=== PATIENT | female | born 1995 | race Caucasian/White ===

== ENCOUNTER 2020-06-28 13:46 | Outpatient (CLI) | payer OTHER, SELFPAY ==
--- NOTE | ~2020-06-28 | US_ITS ---
EXAMINATION: US pelvic complete w TV DATE: 06/28/2020 14:24 INDICATION: Dysfunctional uterine bleeding TECHNIQUE: Multiple transabdominal and endovaginal sonographic images of the pelvis were obtained. COMPARISON: None. FINDINGS: The uterus measures 7.8 x 3.6 x 4.6 cm. The endometrial complex measures 6 mm. The IUD appe ars to be in expected position. The right ovary measures 3.4 x 1.9 x 2.4 cm. The left ovary measures 2.4 x 1.5 x 1.8 cm. There is normal vascular flow in the ovaries. There is no free fluid in the pelvi s. IMPRESSION: 1. No sonographic correlate for the patient's symptoms. Reviewed, dictated and finalized at location B.
== END 2020-06-28 13:47 | disposition home or self-care (01) ==
PROVIDERS: PCP Family Medicine; Visit Provider Nurse Practitioner Family
DX: N93.8 Other specified abnormal uterine and vaginal bleeding (principal)
CPT/HCPCS: 76830; 76856

== ENCOUNTER 2020-10-22 13:30 | Outpatient (RCR) | payer OTHER, SELFPAY ==
--- NOTE | 2020-10-23 15:59 | PTOPEVAL ---
Thank you for referring Tori Mortensen to [facility] [place]Note 2[place]? The patient is scheduled to be seen for therapy? ____x/week for ___ weeks. Please review, sign, date and return this plan of care LEONOR. I agree with and certify that the following plan of care is medically necessary. Referring Physician Date Admitting Provider: Attending Provider: Sami Guy M.D. Referring Provider: *PT Outpatient Evaluation Start: 10/22/20 13:47 Freq: Status: Active Protocol: Document 10/22/20 13:45 [facility] (Rec: 10/22/20 14:54 [facility] [email or web address]) Therapy Assessment Status Assessment Status Assessment Status Evaluation Evaluation Information Problem Diagnosis sciatica L and R sides Onset 10/16/20 Additional Evaluation Detail oswestry = 34% Subjective Information patient reports she has been Query Text:As Reported By Patient/ having L and now R LE pain/ Family symptoms since giveing and having and epidural back in April of this year. she reports she has had a history of sciatic nerve pain in the past for a long time, but reports it has been worse since childbirth. she reports labor was 36 hours. Prior Level of Function Comments Additional Prior Level of Function prior to childbirth she was Comments having an annoying ache that was relieved with piriformis stretching. she reports now her symptoms are more numbness /tingling in the LE's. she reports increased symptoms later in the day at work and when laying down at night. she reports increased symptoms with lifting and carrying car seat. Pain Assessment Timing of Pain Assessment Timing of Pain Assessment Assessment Pain Scale Pain Scale Used Numeric (1 - 10) Self Report Pain Assessment Lower Leg(s) Reported Pain Level 4 Pain Description Aching,Numbness,Tingling Pain Radiation Left Leg,Right Leg Radicular Pain Location bilateral LE's down to feet. Greatest Pain Intensity 7 Pain Score Pain Score 4: Self Report Interventions Used Interventions Used By Clinicians Activity or ADL's,Education, Electrical Stimulation, Exercise,Heat,Manual Therapy
--- NOTE | 2020-11-22 16:54 | PTOPEVAL ---
Thank you for referring Tori Mortensen to [facility].? The patient is scheduled to be seen for therapy? ____x/week for ___ weeks. Please review, sign, date and return this plan of care LEONOR. I agree with and certify that the following plan of care is medically necessary. Referring Physician Date Admitting Provider: Attending Provider: Sami Guy M.D. Referring Provider: TEODORO Outpatient Evaluation Start: 10/22/20 13:47 Freq: Status: Active Protocol: Document 11/22/20 16:15 [facility] (Rec: 11/22/20 16:53 [facility] [email or web address]) Therapy Assessment Status Assessment Status Assessment Status Discharge Evaluation Information Problem Diagnosis sciatica L and R sides Onset 10/16/20 Additional Evaluation Detail oswestry = 0% functional deficits Subjective Information patient reports he feels Query Text:As Reported By Patient/ great this date. she reports Family she has no mor pain in the back or LE's. patient reports she is back to all prior level recreational, work, and home activities. Pain Assessment Timing of Pain Assessment Timing of Pain Assessment Assessment Self Report Self Report Pain Level 0 Pain Score Pain Score 0: Self Report Cervical and Lumbar ROM Lumbar ROM Lumbar Flexion Active Floor Query Text:Hands to: Lumbar Extension (0-40) 40 Query Text:Active in Degrees Lumbar Lateral Flexion Right (0-40) 40 Query Text:Active in Degrees Lumbar Lateral Flexion Left (0-40) 40 Query Text:Active in Degrees Cervical and Lumbar Muscle Testing Lumbar Strength Upper Abdominal Strength 4 Good Lower Abdominal Strength 4 Good Lower Extremity Muscle Strength Testing Hip Strength Bilateral Hip Flexion Strength 5 Normal Hip Extension Strength 5 Normal Hip Abduction Strength 5 Normal Knee Strength Bilateral Knee Flexion Strength 5 Normal Knee Extension Strength 5 Normal Ankle Strength Bilateral Ankle Dorsiflexion Strength 5 Normal Ankle Plantarflexion Strength 5 Normal Muscle Length Testing Muscle Length Testing Piriformis w/Hip Flexion >90 Degrees (R) WFL,(L) WFL Left Hamstring Length 0 Query Text:(90 - 90 Position) Right Hamstring Length 0 Query Text:(90 - 90 Position) General Exercise General Exercises Exercise Description -rec bike 10 minutes Query Text:Record Sets, Reps, -re-evaluation 5 minutes Resistance, and Position PT Clinical Summary Clinical Summary Protocol: PTEVCODE PT Clinical Summary mrs. mortensen
== END 2020-11-22 09:34 | disposition home or self-care (01) ==
LOC: CHSPT 13:30
PROVIDERS: PCP Family Medicine; Visit Provider Family Medicine
DX: M54.31 Sciatica, right side (principal)
CPT/HCPCS: 97014; 97110; 97140; 97161; G0283

== ENCOUNTER 2022-03-31 10:12 | Outpatient (CLI) | payer OTHER, SELFPAY ==
--- NOTE | ~2022-03-31 | XR_ITS ---
EXAMINATION: XR foot RT min 3V DATE: 03/31/2022 10:33 INDICATION: Foot pain injury with pain at the first and second metatarsals TECHNIQUE: Dorsoplantar, two oblique and lateral views of the right foot were obtained. COMPARISON: None. FINDINGS: Alignment is normal. No fracture. Joint spaces are normal. Soft tissues are unremarkable. IMPRESSION: 1. Negative right foot radiographs. Reviewed, dictated and finalized at location A. RIAL CARRIER
== END 2022-03-31 10:13 | disposition home or self-care (01) ==
PROVIDERS: PCP Family Medicine; Visit Provider Internal Medicine
DX: S99.921A Unspecified injury of right foot, initial encounter (principal)
CPT/HCPCS: 73630

== ENCOUNTER 2023-03-04 10:26 | Outpatient (CLI) | payer OTHER, SELFPAY ==
--- NOTE | ~2023-03-04 | US_ITS ---
EXAMINATION: US OB <= 14 weeks fetus DATE: 03/04/2023 11:07 INDICATION: First trimester dating TECHNIQUE: Real-time pelvic transabdominal and transvaginal ultrasound was performed. COMPARISON: None. FINDINGS: The uterus measures 10.6 x 8.0 x 6.3 cm. There is an intrauterine gestational sac. A yolk s ac is identified. heart motion is identified measuring 159 beats per minute (bpm) by M-mode Dop pler. The crown rump length measures 2.1 cm, which correlates with an estimated gestational age of 8 weeks and 5 day(s) (+/-) 4 day(s). The right ovary is not visualized however no right adnexal abnormality is seen. The left ovary measur es 3.8 x 3.3 x 3.1 cm. There is normal vascular flow in the left ovary. There is no free fluid in the pelvis. IMPRESSION: 1. Live intrauterine with an estimated gestational age of 8 weeks and 5 day(s) (+/-) 4 day( s) and an estimated delivery date of 10/09/2023. Reviewed, dictated and finalized at location L. ERTER SKIMMER IMPRESSION: 1. Live intrauterine with an estimated gestational age of 8 weeks and 5 day(s) (+/-) 4 day(s) and an estimated delivery date of 10/09/2023.
--- NOTE | ~2023-03-04 | US_ITS ---
US breast BI complete DATE: 03/04/2023 11:00 INDICATION: Patient's referring physician reportedly felt a lump in the right breast. TECHNIQUE: Real-time imaging of both complete breasts including all 4 quadrants and subareolar areas COMPARISON: None FINDINGS: There is an approximately 2.6 x 3.3 mm simple cyst in the right breast at 10:00 5 cm from t he nipple. No suspicious mass or shadowing or other significant sonographic abnormality is detected elsewhere in either breast. IMPRESSION: BI-RADS Category 2: Benign Reviewed, dictated and finalized at Location A. Reviewed, dictated and finalized at location A. Y POLISHER IMPRESSION: BI-RADS Category 2: Benign
== END 2023-03-04 10:27 | disposition home or self-care (01) ==
PROVIDERS: PCP Family Medicine; Visit Provider Registered Nurse
DX: O36.80X0 Pregnancy with inconclusive fetal viability, not applicable or unspecified (principal); N63.15 Unspecified lump in the right breast, overlapping quadrants; N63.25 Unspecified lump in the left breast, overlapping quadrants; Z3A.08 8 weeks gestation of pregnancy
CPT/HCPCS: 76641; 76801

== ENCOUNTER 2023-06-30 14:08 | Observation (INO) | payer OTHER, SELFPAY ==
[2023-06-30 14:42] VITALS: BP 123/68; PULSE 79
[2023-06-30 14:45] VITALS: BP 117/73; PULSE 86; BMI 27.1
[2023-06-30 14:59] LABS: Basophils Percent Auto 0.3 % (0.2-1.2); Eosinophils Absolute Auto 0.1 K/mm3 (0-0.3); Eosinophils Percent Auto 0.9 % (0-4.4); Hematocrit 30.5 % (37.0-47.0); Hemoglobin 10.1 g/dL (12.0-15.0); Immature Granulocyte Absolute 0.02 K/mm3 (0.00-0.031); Immature Granulocyte Percent A 0.3 % (0-0.5); Lymphocytes Absolute Auto 1.38 K/mm3 (0.9-3.2); Lymphocytes Percent Auto 21.3 % (18.3-44.2); Mean Corpuscular HGB Conc 33.1 g/dl (32-36); Mean Corpuscular Hemoglobin 30.1 pg (26-34); Mean Platelet Volume 9.4 fl (7.4-10.4); Monocytes Absolute Auto 0.3 K/mm3 (0.1-0.6); Monocytes Percent Auto 4.9 % (2.6-8.5); Neutrophils Absolute Auto 4.7 K/mm3 (1.3-6.7); Neutrophils Percent Auto 72.3 % (45.5-73.1); Platelet Count Result 208 k/mm3 (150-375); Red Blood Count 3.35 M/mm3 (4.2-5.4); White Blood Count 6.5 K/mm3 (4.5-10.0)
[2023-06-30 15:00] VITALS: BP 117/68; PULSE 79
--- NOTE | 2023-06-30 15:05 | OBADM ---
This patient, Tori Garcia, admitted to the OB room OB Post 117 for observation. Patient/family oriented to hospital policies and general routines including ID bracelet, bed and alarms, visiting hours, pain management, procedures, bathroom and other care routines, personal items, smoking policy, room service/diet, and visiting hours. Patient/Family are encouraged to report perceived risks to care and to ask questions if they do not understand what they are told or what they should do.
[2023-06-30 15:08] LABS: Appearance Urine Clear (Clear); Bacteria Urine None Seen /hpf; Bilirubin Urine Negative (Negative); Blood Urine 2+ (Negative); Color Urine Yellow (Yellow); Glucose Urine UA Negative (Negative); Ketones Urine Negative (Negative); Leukocyte Esterase Ur Negative LEU/UL (Negative); Nitrate Urine Negative (Negative); Non Pathogenic Casts 0-2; Protein Urine Negative (Negative); RBC Urine 0-2 /hpf (0-2); Squamous Epithelial Cell Urine None Seen /hpf (Few); Urobilinogen Urine 0.2 mg/dL (<2.0); WBC Urine 0-5 /hpf (0-3)
[2023-06-30 15:09] LABS: Add Urine Microscopic? YES; Specific Grav Ur 1.004 (1.001-1.035)
[2023-06-30 15:11] LABS: Alanine Aminotransferase 12 U/L (6-35); Albumin Level 3.7 g/dL (3.5-5.1); Alkaline Phosphatase 75 U/L (38-126); Anion Gap 6 mmol/L (4-12); Aspartate Amino Transferase 18 U/L (14-36); Bilirubin,Total 0.2 mg/dL (0.2-1.3); Blood Urea Nitrogen 7 mg/dL (7-17); Calcium 8.8 mg/dL (8.4-10.2); Carbon Dioxide 22 mmol/L (22-30); Chloride 107 mmol/L (98-107); Estimated Glomerular Filt Rate > 60; Glucose 100 mg/dL (65-110); Potassium 3.4 mmol/L (3.4-5.0); Sodium 135 mmol/L (137-145); Uric Acid 4.4 mg/dL (2.5-7.5)
[2023-06-30 15:15] VITALS: BP 111/68; PULSE 77
[2023-06-30 15:22] LABS: Creatinine Urine 17.1 mg/dL; Total Protein Urine Random 13 mg/dL; Ur Ttl Prot Creatinine Ratio 0.76 mg/mg (0-0.20)
[2023-06-30 15:30] VITALS: BP 111/74; PULSE 83
--- NOTE | 2023-07-15 17:13 | PM.OBTRLD ---
OB - Triage/Final Diagnosis Visit Information Comments/Additional reasons for admission: I have assessed the risk for this patient, Tori Garcia, and determined that she would benefit from observation care. Evaluation Laboratory results: Laboratory Tests 06/30/23 14:49 WBC 6.5 RBC 3.35 L Hgb 10.1 L Hct 30.5 L MCV 91.0 MCH 30.1 MCHC 33.1 RDW 13.0 Plt Count 208 MPV 9.4 Immature Gran % (Auto) 0.3 Neut % (Auto) 72.3 Lymph % (Auto) 21.3 [place] % (Auto) 4.9 Eos % (Auto) 0.9 Baso % (Auto) 0.3 Lymph # (Auto) 1.38 [place] # (Auto) 0.3 Eos # (Auto) 0.1 Baso # (Auto) 0.0 Abs Immat Gran (auto) 0.02 Absolute Neuts (auto) 4.7 Absolute Nucleated RBC 0.000 Nucleated RBC % 0.0 Sodium 135 L Potassium 3.4 Chloride 107 Carbon Dioxide 22 Anion Gap 6 BUN 7 Creatinine 0.50 L Estim Creat Clear Calc Not Reportable Estimated GFR > 60 Glucose 100 Uric Acid 4.4 Calcium 8.8 Total Bilirubin 0.2 AST 18 ALT 12 Alkaline Phosphatase 75 Total Protein 7.0 Albumin 3.7 Urine Color Yellow Urine Appearance Clear Urine pH 7.0 Ur Specific [place] 1.004 Urine Protein Negative Urine Glucose (UA) Negative Urine Ketones Negative Ur Blood (Man) 2+ H Urine Nitrate Negative Urine Bilirubin Negative Urine Urobilinogen 0.2 Leukocyte Esterase Rfl Negative Urine RBC 0-2 Urine WBC 0-5 Ur Squamous Epith Cells None seen Urine Bacteria None seen Urine Casts 0-2 U Random Total Protein 13 Urine Creatinine 17.1 Protein/Creat Ratio 2 0.76 H Final Diagnosis (1) Headache: Code(s): R51.9 - Headache, unspecified Status: Acute (2) Abdominal cramping affecting : Code(s): O26.899 - Other specified related conditions, unspecified trimester; R10.9 - Unspecified abdominal pain Status: Acute
== END 2023-06-30 15:50 | disposition home or self-care (01) ==
PROVIDERS: Admitting Provider Obstetrics & Gynecology; PCP Family Medicine; Visit Provider Obstetrics & Gynecology
DX: O26.892 Other specified pregnancy related conditions, second trimester (principal); R51.9 Headache, unspecified; R10.9 Unspecified abdominal pain; Z3A.25 25 weeks gestation of pregnancy
CPT/HCPCS: 36415; 80053; 81001; 81050; 82570; 82575; 84156; 84550; 85025; G0378; G0379

== ENCOUNTER 2023-07-01 17:35 | Outpatient (CLI) | payer OTHER, SELFPAY ==
[2023-07-01 17:42] VITALS: BMI 27.1
[2023-07-01 18:59] LABS: Total Volume 24 Hour Urine 2250 ml
[2023-07-01 19:03] LABS: Collection Time Urine 24 HOURS; Total Volume 24 Hour Urine 2250 ml
[2023-07-01 19:04] LABS: Patient Weight 153 Lbs
[2023-07-01 19:16] LABS: Total Protein Urine 24 Hr 247 mg/24hr (28-141); Total Protein Urine Random 11 mg/dL
[2023-07-01 19:18] LABS: Creatinine Clearance Urine 171.9 ml/min (75-125); Creatinine Urine 54.7 mg/dL
== END 2023-07-01 17:36 | disposition home or self-care (01) ==
LOC: ANHOBOP 17:40
PROVIDERS: PCP Family Medicine; Visit Provider Obstetrics & Gynecology
DX: O12.10 Gestational proteinuria, unspecified trimester (principal)
CPT/HCPCS: 81050; 82575; 84156

== ENCOUNTER 2023-07-16 08:25 | Outpatient (CLI) | payer OTHER, SELFPAY ==
[2023-07-16 09:33] LABS: Hematocrit 32.1 % (35.0-49.0); Hemoglobin 10.4 g/dL (12.0-15.0); Mean Corpuscular HGB Conc 32.4 g/dL (32-36); Mean Corpuscular Hemoglobin 29.7 pg (27.0-31.0); Mean Corpuscular Volume 91.7 fL (78.0-102.0); Platelet Count Result 192 K/mm3 (150-420); Red Cell Distribution Width 12.5 % (11.6-14.4); White Blood Count 5.5 K/mm3 (4.8-10.8)
[2023-07-16 09:55] LABS: Glucose 1 Hour PP 50gm Dose 90 mg/dL (70-130)
[2023-07-16 10:08] LABS: HIV 1 P24 AG Negative (Negative); HIV 1/2 AB Negative (Negative)
== END 2023-07-16 08:26 | disposition home or self-care (01) ==
LOC: CHSLAB 08:27
PROVIDERS: PCP Family Medicine; Visit Provider Nurse Practitioner Family
DX: Z34.90 Encounter for supervision of normal pregnancy, unspecified, unspecified trimester (principal)
CPT/HCPCS: 36415; 82947; 85025; 85027; 87806

== ENCOUNTER 2023-09-27 12:39 | Observation (INO) | payer OTHER, SELFPAY ==
--- NOTE | 2023-09-27 12:39 | OBADM ---
This patient, Tori Garcia, admitted to the OB room Labor/Delivery/Recovery 105 for observation. Patient/family oriented to hospital policies and general routines including ID bracelet, bed and alarms, visiting hours, pain management, procedures, bathroom and other care routines, personal items, smoking policy, room service/diet, and visiting hours. Patient/Family are encouraged to report perceived risks to care and to ask questions if they do not understand what they are told or what they should do.
[2023-09-27 13:50] VITALS: BMI 32.2
[2023-09-27 14:15] VITALS: BP 123/73; PULSE 90
--- NOTE | 2023-10-25 09:17 | PM.OBTRLD ---
OB - Triage/Final Diagnosis Visit Information Comments/Additional reasons for admission: I have assessed the risk for this patient, Tori Garcia, and determined that she would benefit from observation care. Final Diagnosis (1) Threatened labor: Code(s): O47.9 - False labor, unspecified Status: Acute
== END 2023-09-27 14:38 | disposition home or self-care (01) ==
PROVIDERS: Admitting Provider Obstetrics & Gynecology; PCP Family Medicine; Visit Provider Obstetrics & Gynecology
DX: O47.1 False labor at or after 37 completed weeks of gestation (principal); Z3A.38 38 weeks gestation of pregnancy
CPT/HCPCS: G0378; G0379

== ENCOUNTER 2023-09-28 12:05 | Outpatient (RCR) | payer OTHER, SELFPAY ==
[2023-09-07 19:01] VITALS: BP 119/73; PULSE 73
[2023-09-21 17:30] VITALS: BP 126/87; PULSE 89
--- NOTE | ~2023-09-28 | US_ITS ---
EXAMINATION: US OB follow up w BPP DATE: 09/21/2023 17:13 INDICATION: Size measuring smaller than dates. Third trimester. TECHNIQUE: Real-time ultrasound of the pelvis was performed. COMPARISON: Ultrasound 03/04/2023 FINDINGS: There is a single living fetus in vertex presentation. The placenta is posterior and fundal. h eart rate is 159 beats per minute (bpm). The amniotic fluid index is 10.8 cm, which is normal. The following biometric data were obtained: Biparietal diameter (BPD): 8.9 cm; head circumference (HC): 35.4 cm; abdominal circumference (AC): 35 .1 cm; femur length (FL): 7.2 cm. These measurements are concordant. Estimated weight is 3500 g +/- 525 g, which correlates with the 81st percentile when 10/08/23 is used as estimated date of delivery. As single measurements, these parameters are each equal to the following estimated gestational ages: BPD: 36 weeks 0 days. HC: 41 weeks 3 days. AC: 39 weeks 0 days. FL: 37 weeks 0 days. estimated gestational age based solely on measurements from this exam is 38 weeks 3 days +/- 2 weeks 5 days. Umbilical artery pulsed Doppler demonstrates a peak systolic to end-diastolic velocity ratio (S/D rat io) of 2.3 (5th percentile = 1.9, 95th percentile = 3.2). Biophysical profile performed by the technologist: breathing (30 sec sustained breathing in 30 minutes): 2 out of 2 movement (3 gross body movements in 30 minutes: 2 out of 2 tone (one episode of srfkmjv-xjuadftfe-trbtirm limb movement): 2 out of 2 Amniotic fluid pocket (2 cm): 2 out of 2 Total score: 8 out of 8 IMPRESSION: 1. Single living fetus in vertex presentation. 2. Estimated weight is 3500 g +/- 525 g, which correlates with the 81st percentile when 4 is used as estimated date of delivery. Note that estimated date of delivery based on the ultrasound from 03/04/2023 would be 10/09/2023. 3. Biophysical profile 8 out of 8. 4. Normal umbilical artery Doppler. Reviewed, dictated and finalized at location E. IMPRESSION: 1. Single living fetus in vertex presentation. 2. Estimated weight is 3500 g +/- 525 g, which correlates with the 81st percentile when 10/08/23 is used as estimated date of delivery. Note that estima lauryn date of delivery based on the ultrasound from 03/04/2023 would be 10/09/2023 . 3. Biophysical profile 8 out of 8. 4. Normal umbilical artery Doppler.
--- NOTE | ~2023-09-28 | US_ITS ---
EXAMINATION: US OB limited w BPP DATE: 09/28/2023 13:33 INDICATION: Low heart rate. Assess amniotic fluid index. TECHNIQUE: Real-time pelvic ultrasound was performed. The interpreting radiologist was not present fo r the study. COMPARISON: None. FINDINGS: There is a single living fetus in vertex presentation. The placenta is posterior fundal. heart rate is 122 beats per minute (bpm). Normal amniotic fluid index of 15.0 cm (5th%-95%: 7.3-23.9 cm at T8 weeks estimated gestational age) Biophysical profile performed by the technologist: breathing (30 sec sustained breathing in 30 minutes): 2 out of 2 movement (3 gross body movements in 30 minutes): 2 out of 2 tone (one episode of xhhnarn-eitgezpxg-vfwifyd limb movement): 2 out of 2 Amniotic fluid pocket (2 cm): 2 out of 2 Total score: 8 out of 8 IMPRESSION: 1. Single living fetus in vertex presentation with heart rate of 122 bpm. 2. Biophysical profile 8 out of 8. 3. Normal amniotic fluid index of 15.0 cm. Reviewed, dictated and finalized at location A.
== END 2023-12-06 23:59 | disposition home or self-care (01) ==
LOC: ANHOBOP 12:05
PROVIDERS: PCP Family Medicine; Visit Provider Obstetrics & Gynecology
DX: O36.8130 Decreased fetal movements, third trimester, not applicable or unspecified (principal); Z3A.35 35 weeks gestation of pregnancy; O36.5930 Maternal care for other known or suspected poor fetal growth, third trimester, not applicable or unspecified; Z3A.37 37 weeks gestation of pregnancy; O36.8330 Maternal care for abnormalities of the fetal heart rate or rhythm, third trimester, not applicable or unspecified; Z3A.38 38 weeks gestation of pregnancy
CPT/HCPCS: 59025; 76815; 76816; 76819

== ENCOUNTER 2023-10-01 06:24 | Inpatient (IN) | payer OTHER, SELFPAY ==
[2023-10-01] VITALS (293 sets, daily range): BP systolic 97–143; BP diastolic 55–116; PULSE 25–145; TEMP 36.3–37.4; O2SAT 69–100; BMI 33.0
[2023-10-01] MEDS: LACTATED RINGERS 1,000 ML 125 ML IV CONT ×4 (07:05→18:21)
--- NOTE | 2023-10-01 07:09 | LDADM ---
This patient, Tori Garcia, was admitted to Labor/Delivery/Recovery 105 on 10/01/23 at 06:24. Plans for labor, pain management and were discussed with patient. Patient/family oriented to hospital policies and general routines including ID bracelet, bed and alarms, visiting hours, pain management, procedures, bathroom and other care routines, personal items, smoking policy, room service/diet and guest tray routines, security routines, and visiting hours. Patient/Family are encouraged to report perceived risks to care and to ask questions if they do not understand what they are told or what they should do. See OBIX for further documentation.
[2023-10-01 07:14] LABS: Basophils Percent Auto 0.3 % (0.2-1.2); Eosinophils Absolute Auto 0.1 K/mm3 (0-0.3); Eosinophils Percent Auto 1.8 % (0-4.4); Hematocrit 31.9 % (37.0-47.0); Hemoglobin 10.5 g/dL (12.0-15.0); Immature Granulocyte Absolute 0.02 K/mm3 (0.00-0.031); Immature Granulocyte Percent A 0.3 % (0-0.5); Lymphocytes Absolute Auto 1.83 K/mm3 (0.9-3.2); Lymphocytes Percent Auto 29.2 % (18.3-44.2); Mean Corpuscular HGB Conc 32.9 g/dl (32-36); Mean Corpuscular Hemoglobin 29.4 pg (26-34); Mean Corpuscular Volume 89.4 fl (80-100); Mean Platelet Volume 10.7 fl (7.4-10.4); Monocytes Absolute Auto 0.4 K/mm3 (0.1-0.6); Monocytes Percent Auto 6.5 % (2.6-8.5); Neutrophils Absolute Auto 3.9 K/mm3 (1.3-6.7); Neutrophils Percent Auto 61.9 % (45.5-73.1); Platelet Count Result 192 k/mm3 (150-375); Red Blood Count 3.57 M/mm3 (4.2-5.4); Red Cell Distribution Width 12.5 % (11.5-14.5); White Blood Count 6.3 K/mm3 (4.5-10.0)
[2023-10-01] MEDS: OXYTOCIN 30 UNITS/NS 500 ML 30 UNITS/500 ML BAG IV CONT (07:20)
[2023-10-01 08:06] LABS: HIV 1/2 Ab P24 Ag Result Negative (Negative)
--- NOTE | 2023-10-01 08:24 | PM.IMHP ---
H&P: HPI History of Present Illness Date/Time: 10/01/23 08:24 Chief Complaint: Induction of labor Narrative: patient is a 27-year-old at 39 weeks admitted for medical induction of labor. course uncomplicated. She has been informed of risks benefits of induction of labor versus spontaneous labor and has opted for induction of labor. Review of Systems Review of Systems: All systems reviewed & are unremarkable except as noted in HPI and below Constitutional: Constitutional: Reports no additional constitutional complaints and Denies headache(s) Eyes: Eyes: Denies spots in vision ENT: Reports system reviewed and no additional complaints, except as documented and Denies headache(s) Cardiovascular: Cardiovascular: Denies chest pain and Denies dyspnea Respiratory: Respiratory: Denies dyspnea Gastrointestinal: Gastrointestinal: Reports no additional gastrointestinal complaints Genitourinary: Genitourinary: Reports amenorrhea Musculoskeletal: Musculoskeletal: Reports no additional musculoskeletal complaints Integumentary/Breasts: Skin/Breast: Denies breast mass and Denies rash Neurologic: Denies headache(s) Psychiatric: Psychiatric: Reports no additional psychiatric complaints [facility] Past Medical History Medical History Frequent headaches Surgical History Surgical History H/O LEEP [place] teeth removed Family History Family History Grandparent Heart disease Bladder cancer Thyroid disorder Grandparent Hypertension Social History Social History Smoking status: Former smoker Tobacco type: cigarettes Alcohol intake: current Alcohol use details: not since Substance use: never Substance use type: does not use Do You Feel Safe in your Home?: Yes Lack of Transportation: No Lack of Food: Never True Current Housing: I Have Housing Concerned About Future Housing: No Difficulty Paying Gas/Electric Bills: No Difficulty Paying for Meds: No Currently Unemployed: No Education: Don't Know Difficulty w/ Childcare or Family Care: No Spiritual care concerns: No Meds Home Medications and Allergies Home Medications Medication Instructions Recorded Confirmed Type amitriptyline 10 mg tablet 10 mg PO DAILY #90 tabs 03/02/23 10/01/23 Rx docosahexaenoic acid 200 mg 1 mg PO DAILY 03/02/23 10/01/23 History capsule ( DHA) ondansetron HCl 4 mg tablet 4 mg PO Q6H PRN nausea and 03/30/23 10/01/23 Rx vomiting #20 tabs sumatriptan succinate 50 mg tablet 10 mg PO PRN 06/30/23 10/01/23 History Allergies Allergy/AdvReac Type Severity Reaction Status Date / Time No Known Allergies Allergy Verified 09/28/23 11:40 Vital Signs Vital Signs - 24 hr 10/01/23 06:42 10/01/23 06:47 10/01/23 06:52 Pulse Rate Blood Pressure Pulse Oximetry 100 100 99 Oxygen Delivery 10/01/23 06:57 10/01/23 07:02 10/01/23 07:07 Pulse Rate Blood Pressure Pulse Oximetry 99 98 97 Oxygen Delivery 10/01/23 07:12 10/01/23 07:17 10/01/23 07:22 Pulse Rate Blood Pressure Pulse Oximetry 98 99 98 Oxygen Delivery 10/01/23 07:27 10/01/23 07:30 10/01/23 07:35 Pulse Rate 89 Blood Pressure 142/116 H Pulse Oximetry 100 99 100 Oxygen Delivery 10/01/23 07:41 10/01/23 07:42 10/01/23 07:45 Pulse Rate 89 Blood Pressure 109/82 Pulse Oximetry 100 100 100 Oxygen Delivery 10/01/23 07:50 10/01/23 07:55 10/01/23 08:00 Pulse Rate 77 Blood Pressure 112/74 Pulse Oximetry 100 100 98 Oxygen Delivery 10/01/23 08:05 10/01/23 08:05 10/01/23 08:10 Pulse Rate Blood Pressure Pulse Oximetry 99 100 100 Oxygen Delivery 10/01/23 08:15 10/01/23 08:20 10/01/23 07:08 Pulse Rate 79
--- NOTE | 2023-10-01 08:26 | P.PNOB_ITS ---
OB - PN: Subj Subjective Date/time seen: 10/01/23 08:26 Interval history: heart tones 130s category 1 tracing cervix 1 and have 70% -2 AROM 0731 clear continue Pitocin. OB - PN: Obj Data Labs 10/01/23 06:37 Labs: Laboratory Results - last 24 hr 10/01/23 06:37 WBC 6.3 RBC 3.57 L Hgb 10.5 L Hct 31.9 L MCV 89.4 MCH 29.4 MCHC 32.9 RDW 12.5 Plt Count 192 MPV 10.7 H Immature Gran % (Auto) 0.3 Neut % (Auto) 61.9 Lymph % (Auto) 29.2 [place] % (Auto) 6.5 Eos % (Auto) 1.8 Baso % (Auto) 0.3 Lymph # (Auto) 1.83 [place] # (Auto) 0.4 Eos # (Auto) 0.1 Baso # (Auto) 0.0 Abs Immat Gran (auto) 0.02 Absolute Neuts (auto) 3.9 Absolute Nucleated RBC 0.000 Nucleated RBC % 0.0 HIV 1&2 Ab/P24 Ag 4thGn Negative Blood Type O Positive Antibody Screen Negative OB - PN A/P Time Spent With Patient Time: Total time spent is greater than 50% in coordination of care (as documented) at patient's floor/unit and/or counseling patient:
--- NOTE | 2023-10-01 08:27 | WPDOBADMIT ---
Obstetrics - Admit Note Admission Note: record reviewed. No pertinent additions to the history and/or any subsequent changes in the physical findings that are not consistent with the expected course of the were found. Additions to the history and/or subsequent changes in the physical findings follow. None.
--- NOTE | 2023-10-01 11:11 | WPDANESEPP ---
Anes - Eval Pre Procedure Procedure: labor epidural Date/Time: 10/01/23 11:11 Surgeon: Laura Preop Diagnosis: Pain during labor Pre Op Diagnosis: Induction of Labor Patient Data Age: 27 Gender: F Height: 1.57 m Weight: 82 kg Last Vital Signs Temp 36.6 C 10/01/23 10:30 Pulse 78 10/01/23 10:30 BP 111/74 10/01/23 10:30 Pulse Ox 100 10/01/23 11:08 O2 Del Method Room Air 10/01/23 07:08 Allergies Allergy/AdvReac Type Severity Reaction Status Date / Time No Known Allergies Allergy Verified 09/28/23 11:40 Home Medications Medication Instructions Recorded Confirmed Type amitriptyline 10 mg tablet 10 mg PO DAILY #90 tabs 03/02/23 10/01/23 Rx docosahexaenoic acid 200 mg 1 mg PO DAILY 03/02/23 10/01/23 History capsule ( DHA) ondansetron HCl 4 mg tablet 4 mg PO Q6H PRN nausea and 03/30/23 10/01/23 Rx vomiting #20 tabs sumatriptan succinate 50 mg tablet 10 mg PO PRN 06/30/23 10/01/23 History Laboratory Tests 10/01/23 06:37 WBC 6.3 K/mm3 (4.5-10.0) RBC 3.57 L M/mm3 (4.2-5.4) Hgb 10.5 L g/dL (12.0-15.0) Hct 31.9 L % (37.0-47.0) MCV 89.4 fl (80-100) MCH 29.4 pg (26-34) MCHC 32.9 g/dl (32-36) RDW 12.5 % (11.5-14.5) Plt Count 192 k/mm3 (150-375) MPV 10.7 H fl (7.4-10.4) Immature Gran % (Auto) 0.3 % (0-0.5) Neut % (Auto) 61.9 % (45.5-73.1) Lymph % (Auto) 29.2 % (18.3-44.2) [place] % (Auto) 6.5 % (2.6-8.5) Eos % (Auto) 1.8 % (0-4.4) Baso % (Auto) 0.3 % (0.2-1.2) Lymph # (Auto) 1.83 K/mm3 (0.9-3.2) [place] # (Auto) 0.4 K/mm3 (0.1-0.6) Eos # (Auto) 0.1 K/mm3 (0-0.3) Baso # (Auto) 0.0 K/mm3 (0.0-0.1) Abs Immat Gran (auto) 0.02 K/mm3 (0.00-0.031) Absolute Neuts (auto) 3.9 K/mm3 (1.3-6.7) Absolute Nucleated RBC 0.000 K/mm3 (0.0-0.012) Nucleated RBC % 0.0 % (0.0-0.2) RPR Pending HIV 1&2 Ab/P24 Ag 4thGn Negative (Negative) Blood Type O Positive Antibody Screen Negative Patient hx anesthesia problems: none Family hx anesthesia problems: none Results Review: All pre-operative results and documents have been reviewed as part of the pre-operative evaluation. COUNT INCLUDES THE [facility] Past Medical History Medical History Frequent headaches Surgical History Surgical History H/O LEEP [place] teeth removed Family History Family History Grandparent Heart disease Bladder cancer Thyroid disorder Grandparent Hypertension Social History Social History Smoking status: Former smoker Tobacco type: cigarettes Alcohol intake: current Alcohol use details: not since Substance use: never Substance use type: does not use Do You Feel Safe in your Home?: Yes Lack of Transportation: No Lack of Food: Never True Current Housing: I Have Housing Concerned About Future Housing: No Difficulty Paying Gas/Electric Bills: No Difficulty Paying for Meds: No Currently Unemployed: No Education: Don't Know Difficulty w/ Childcare or Family Care: No Spiritual care concerns: No Exam Day of Procedure 10/01/23 11:11 Patient weight: overweight Heart: regular rate and rhythm Lungs: normal air movement Airway: Mallampati scale class II Neurological: alert and oriented
[2023-10-01 11:22] LABS: Rapid Plasma Reagin Non-Reactive (NonReactive)
[2023-10-01] MEDS: diphenhydrAMINE HCl INJ 50 MG/ML VIAL 25 MG IV PUSH (21:36)
--- NOTE | 2023-10-01 22:52 | P.PCNOB_ITS ---
OB - Vaginal Delivery Note Procedure Delivery date: 10/01/23 Induction method: Per Pitocin Protocol Delivery augmentation: Rupture of Membranes and Pitocin Delivery monitor: External Uterine and Internal Uterine Route of delivery: Episiotomy description: None Laceration Description: None Specimen: No Quantitative Blood Loss (ml): 150 Anesthesia type: Epidural Disposition: Floor Complications: No immediate complications Narrative: She was admitted for [facility]. Pitocin was started. She had AROM clear. IUPC placed to better assess uterine activity. She did epidural placed on request. She did have to have it replaced several times for pain control. She was given benadryl due to swelling of cervix which did help decrease the swelling. She progressed to complete. She pushed two times and delivered a female over intact perineum. 's nose mouth suctioned at perineum. The anterior shoulder and the rest of the was delivered. was vigorously crying and placed on maternal abdomen. Delayed cord clamping until cord apulsatile which was approximately one minute and then cord doubly clamped and cut. Cord blood and gases obtained. Pitocin started. Placenta delivered spontaneously and intact. [place] Baby Date of : 10/01/23 Time of : 22:36 Weeks of gestation at delivery: 39 gender: Female presentation: vertex position: Right Occiput Anterior Placenta delivery description: Spontaneous Cord Vessel Description: 3 Vessels score one minute: 8 score five minutes: 9
[2023-10-01] MEDS: OXYTOCIN 30 UNITS/NS 500 ML 30 UNITS/500 ML BAG 125 UNITS IV CONT (23:06)
[2023-10-02] VITALS (8 sets, daily range): BP systolic 104–113; BP diastolic 62–77; PULSE 68–90; RESP 16–18; TEMP 36.9–37.1; O2SAT 98–99
[2023-10-02] MEDS: BENZOCAINE 20% AER SPR (*SP) 56 GM CAN 1 SPRAY TOPICAL (01:16)
[2023-10-02] MEDS: WITCH HAZEL 40 PADS 1 PAD TOPICAL (01:16)
--- NOTE | 2023-10-02 01:27 | PC.NURSE ---
Patient transferred to post room # 283 via ( W/C ). Support person present. Oriented to unit, room, information board, rooming in, admission packet and security measures. Patient verbalizes understanding.
[2023-10-02 06:06] LABS: Hematocrit 29.5 % (37.0-47.0); Hemoglobin 9.8 g/dL (12.0-15.0)
[2023-10-02] MEDS: POLYSACCHARIDE IRON COMPLEX 150 MG CAPSULE PO ×2 (08:49→16:36)
[2023-10-02] MEDS: DOCUSATE SODIUM 100 MG CAPSULE PO ×2 (08:49→16:36)
[2023-10-02] MEDS: MULTIVIT/MIN/PREN/FOL AC/IRON TABLET 1 TAB PO (08:49)
--- NOTE | 2023-10-02 10:57 | PM.OBPNVD ---
OB - PN: Subj Subjective Date/time seen: 10/02/23 10:57 Interval history: heart tones 130s category 1 tracing cervix 1 and have 70% -2 AROM 0731 clear continue Pitocin. Patient comments: pain well controlled, tolerating diet and other (Decreasing lochia.) [place] baby status: doing well and nursing well OB - PN: Obj Data Labs 10/02/23 05:56 Labs: Laboratory Results - last 24 hr 10/01/23 10/02/23 06:37 05:56 Hgb 9.8 L Hct 29.5 L RPR Non-reactive OB - PN A/P Plan day: 1 Plan: routine care Comments: Patient doing well. Time Spent With Patient Time: Total time spent is greater than 50% in coordination of care (as documented) at patient's floor/unit and/or counseling patient: Exam Psych: Affect: normal affect Other: Abd: fundus firm below umbilicus, nontender Perineum: healing Ext: nontender
--- NOTE | 2023-10-02 10:59 | PM.OBDSVD ---
DS: Admitting Diagnosis Discharge Date 10/03/23 Admitting Diagnosis Medical induction of labor DS: Discharge Diagnosis Discharge Diagnosis (1) Vaginal delivery: Code(s): O80 - Encounter for full-term uncomplicated delivery Status: Acute OB - DS: Summary Hospital Course Hospital Course: She was admitted for [facility]. She had an uncomplicated vaginal delivery. She did well . She was discharged to home on day 2. OB Procedures : Ultrasound OB Procedures Intrapartum: Spontaneous Vag Delivery OB Procedures: : None Peripartum Data Delivery Method: Natural Vaginal Laceration Description: None Episiotomy description: None complications: none Status at Discharge Functional status at discharge: independent ambulation Time Spent with Patient Time attestation: Total time spent providing and/or coordinating discharge services: Exam Const: General: cooperative Orientation/consciousness: oriented to person, oriented to place and oriented to time HENMT: Face/Nose/Sinus: Normal external nose present Eyes: General: appearance normal, both eyes and all related structures Resp: Effort & Inspection: normal respiratory effort GI: Inspection: normal to inspection Skin: General skin exam: normal color Neuro: General: oriented to person, oriented to place and oriented to time Extrem: General: normal to inspection and no calf tenderness Psych: Appearance: grossly normal DS: Data Data Completed and Pending Labs on day of discharge: Labs from last 24 hours 10/02/23 10/01/23 05:56 06:37 Hgb 9.8 L Hct 29.5 L RPR Non-reactive Discharge Plan Discharge Attending physician on discharge: Anup Sanchez Consulting providers: Derrick Seo Discharging Clinician: Anup Sanchez Anticipated Discharge Date/Time: 10/03/23 10:04 Patient Disposition: Home, Self-Care Activity: may shower and pelvic rest Diet: regular Patient Instructions: Antibiotic Form Stand Alone Forms: General Discharge Information Follow-up/Referrals: Anup Sanchez MD [Physician] - 6 Weeks (Call for appointment) Discharge Medications: Continued DHA 200 mg capsule 1 mg PO DAILY Discontinued ondansetron HCl 4 mg tablet 4 mg PO Q6H PRN (Reason: nausea and vomiting) Qty: 20 0RF amitriptyline 10 mg tablet 10 mg PO DAILY Qty: 90 2RF No Action sumatriptan succinate 50 mg tablet 10 mg PO PRN Date of admission: 10/01/23 06:24 Primary Care Provider: Sami Guy Admitting Provider: Anup Sanchez Attending physician on admission: Anup Sanchez Condition: Stable
--- NOTE | 2023-10-02 14:50 | WPDANLDPN2 ---
Anes-Prog Note L&D Date/Time: 10/02/23 14:50 Comfortable throughout: labor and delivery Neuraxial method: epidural Epidural/Spinal procedure site: tender (Epidural catheter was replaced twice after initial placement yesterday.) Neuro status: Neuro function grossly intact. Cardiovascular status: normal Respiratory status: normal Airway patency: baseline Mental status: baseline Post-Op hydration status: normal Vital Signs: Last Vital Signs Temp 37.0 C 10/02/23 08:00 Pulse 68 10/02/23 08:00 Resp 16 10/02/23 08:00 BP 113/75 10/02/23 08:00 Pulse Ox 98 10/02/23 08:00 O2 Del Method Room Air 10/02/23 08:00 Pain score (VAS): 3/10 I/O: Intake & Output 10/01/23 10/02/23 10/02/23 23:59 07:59 15:59 Intake Total 1000 250 Output Total 150 260 Balance 850 -260 250 Post-procedural complaints: none Patient feedback: Patient satisfied with anesthetic care.
[2023-10-03 07:38] VITALS: BP 113/75; PULSE 74; RESP 20; TEMP 36.9; O2SAT 99
[2023-10-03 08:00] VITALS: PULSE 74; RESP 20; O2SAT 99
[2023-10-03] MEDS: MULTIVIT/MIN/PREN/FOL AC/IRON TABLET 1 TAB PO (09:52)
[2023-10-03] MEDS: DOCUSATE SODIUM 100 MG CAPSULE PO (09:52)
[2023-10-03] MEDS: POLYSACCHARIDE IRON COMPLEX 150 MG CAPSULE PO (09:52)
--- NOTE | 2023-10-03 10:03 | PM.OBPNVD ---
OB - PN: Subj Subjective Date/time seen: 10/03/23 10:03 Interval history: heart tones 130s category 1 tracing cervix 1 and have 70% -2 AROM 0731 clear continue Pitocin. Patient comments: pain well controlled, tolerating diet and other (Decreasing lochia.) [place] baby status: doing well and nursing well [place] feeding status: exclusively breast feeding OB - PN: Obj Data Labs 10/02/23 05:56 OB - PN A/P Plan day: 2 Plan: discharge home and other Comments: Patient doing well. Follow up 4-6 weeks. Discharge instructions provided. Time Spent With Patient Time: Total time spent is greater than 50% in coordination of care (as documented) at patient's floor/unit and/or counseling patient: Time with patient: less than 15 minutes Review of Systems Review of Systems: All systems reviewed & are unremarkable except as noted in HPI and below Constitutional: Constitutional: Reports no additional constitutional complaints Cardiovascular: Cardiovascular: Denies dyspnea Respiratory: Respiratory: Denies dyspnea Gastrointestinal: Gastrointestinal: Reports no additional gastrointestinal complaints and Denies abdominal pain Genitourinary: Genitourinary: Reports no additional female genitourinary complaints Exam Psych: Affect: normal affect Other: Abd: fundus firm below umbilicus, nontender Ext: nontender
[2023-10-04 15:31] VITALS: BP 121/69; PULSE 77; RESP 18; TEMP 36.8; O2SAT 99
== END 2023-10-03 11:15 | disposition home or self-care (01) | DRG 807 ==
LOC: ANHLDR 07:15 → ANHOB2 10-02 01:44
PROVIDERS: Admitting Provider Obstetrics & Gynecology; PCP Family Medicine; Visit Provider Obstetrics & Gynecology
DX: O80 Encounter for full-term uncomplicated delivery (principal); Z37.0 Single live birth; Z3A.39 39 weeks gestation of pregnancy; Z87.891 Personal history of nicotine dependence
CPT/HCPCS: 36415; 59025; 76815; 76819; 85014; 85018; 85025; 86592; 86703; 86850; 86900; 86901; A9270; G0432; J1200; J2590; J2795; J7120